=== PATIENT | female | born 1970 | race Caucasian/White ===

== ENCOUNTER → 2016-09-04 | Outpatient (CLI) | payer OTHER ==
[~2016-09-04] VITALS: Ht 162.6 cm; Wt 99.1 kg
[~2016-09-04] MED LIST: ABILIFY10 MG PO; ACETAMINOPHEN-1 EAC1 PO; AMITRIPTYLINE H10 M1 PO; ASPIRIN81 M2 PO; ATORVASTATIN CA40 MG PO; BACTRIM DS TAB1 EACH PO; BENTYL; BISACODYL SUPP10 MG RECTAL; BUSPAR; BUSPAR30 MG PO; BYSTOLIC 5 MG5 M1 PO; CLOMIPRAMINE HC50 M1 PO; COLACE100 MG PO; DIABETA 1.25M1.25 M1; EFFEXOR; EFFEXOR XR150 MG PO; EFFEXOR50 MG PO; ERYTHROMYCIN E3.5 G1 OPHTHALMIC; FLEXERIL PO; GABAPENTIN; HYDROCHLOROTHIA25 M1 PO; JANUMET; JANUMET 50-5001 EACH PO; JANUMET XR 1001 EACH PO; JANUMET XR 50-1 EACH PO; JANUVIA100 MG PO; LANTUS SOL100 UNIT/1 SQ; LEVAQUIN 500 M50012 PO; LEXAPRO 10 MG T10 M1 PO; LIDOCAINE VISC100 ML PO; LISINOPRIL; LUNESTA; MEDROLDOSEPACK PO; METFORMIN; METFORMIN HCL500 MG PO; METOCLOPRAMIDE10 MG PO; MOBIC; MOBIC15 MG PO; NAPROSYN500 MG PO; NEURONTIN600 MG; NEXIUM; NEXIUM 40 MG CA40 M1 PO; NICOTINE TRANSD21 M1 TD; NICOTINE TRANSD21 M1 TRANSDERM; NORCO 10-325 T1 EACH PO; NORFLEX100 MG PO; OXYCONTIN10 M1 PO; PERCOCET 5-3251 EACH PO; PREDNISONE 10 M10 MG PO; PREDNISONE 20 M20 MG PO; PRINIVIL10 MG; PRINIVIL10 MG PO; PROMETHAZINE D480 ML PO; REGLAN 10 MG TA10 MG PO; ROBAXIN 750 MG750 M1; ROBAXIN 750 MG750 M1 PO; TESSALON PERLE100 MG PO; TOPAMAX 25 MG T25 M1 PO; TRULICITY0.75 MG/0.; TRULICITY0.75 MG/0. SQ; VISTARIL; VITAMIN D32000 UNI1 PO; WELLBUTRIN XL300 MG; ZANAFLEX4 M1; ZIAC; ZIAC 10-6.25 M1 EACH PO; ZOCOR40 MG PO; ZOFRAN ODT4 MG PO; ZPAK PO
--- NOTE | ~2016-09-04 | HPC ---
[facility] [place] [address] PAIN MANAGEMENT CONSULTATION Name: BALBIR MATSON Room #: REG MARLEYTita Moody#: [id number] Admission: 09/04/16 Attend Phys: Scout Hernandez DO Discharge: Date of : 68 Report #: [id number] THIS REPORT FOR: //name// CC: Mili Hernandez The patient is a 46-year-old female being treated for lumbar radiculopathy, status post decompressive laminectomy surgeries, 2009 and 2013. Last seen in the pain clinic on 03/06/[address] Larry Brooks, right L4-L5 transforaminal epidural injection was offered with no significant improvement of pain. The patient prior had a midline epidural injection at L3-L4 back in September with some overall improvement. The patient returns to pain clinic today noting pain has recurred. It is primarily in low back, right leg. To the patient's credit, she is loathe to take opiate analgesics, having been habituated to opiates and gone through detox. She currently takes Tylenol alone for pain. She notes pain is 6/10. Again, the pain is radiating down the right leg in, what appears to be, an L4 radicular pattern. She would like to try and avoid further surgery. She presents to pain clinic today for consideration for epidural injection under fluoroscopy. PHYSICAL EXAMINATION: Shows a 46-year-old female, BMI is 37.5 kilograms per meter squared. Vital signs are stable as noted in the EMR. Rises from the chair using armrest, modestly antalgic gait. Subjectively notable loss of strength of right leg to hip flexion, lower extremity extension, perhaps 3/5 versus 4-5/5 for the left. Straight leg raise is nominally positive. Patellar reflex is diminished on the right. Diffuse tenderness across the low back, large midline scar compatible with her extensive surgical history (lumbar fusion). Her first surgery was a fusion at [facility] around 2009; this resulted in exacerbation of pain. Subsequent decompression and laminectomy by Dr. Lester in 2013 provided some overall improvement. ASSESSMENT: Symptomatic lumbar radiculopathy, status post decompressive laminectomy, comorbidities include morbid obesity with body mass index of 37.5 kilograms per meter squared. RECOMMENDATIONS: Discussion with the patient today about therapeutic option. We have elected to trial midline epidural injection today, above the surgical site at L3-L4. If this does not afford adequate relief, consider injection from a lower approach, i.e. L5-S1 and/or caudal. ASSESSMENT: Symptomatic lumbar radiculopathy status post decompressive laminectomy. PROCEDURE: Lumbar epidural [place] [address] PAIN MANAGEMENT CONSULTATION Name: BALBIR MATSON Room #: REG GILBERTO Moody#: [id number] Admission: 09/04/16 Attend Phys: Scout Hernandez DO Discharge: Date of : 68 Report #: [id number] DESCRIPTION OF PROCEDURE: After both written and informed consent to include risk of spinal cord damage, increased pain, weakness and dural puncture, the patient was taken to the fluoroscopy suite, placed in the prone position. After sterile prep and drape, a skin wheal with lidocaine was raised. A 22-gauge epidural Tuohy needle was inserted in the midline at L3-L4 with good loss to resistance. Negative aspiration for cerebrospinal fluid or blood was noted. Then 1 mL of Omnipaque under biplanar fluoroscopy showed good spread within the epidural space. This was followed with 80 mg of triamcinolone plus 1 mL of 1.5% preservative-free Xylocaine, 0.5 mL Xylocaine was then injected to flush the needle; it was removed. The patient was monitored for an appropriate period of time and discharged in good and stable condition. <ELECTRONICALLY SIGNED> By: Scout Hernandez DO 09/05/16 [id number] Scout Hernandez DO /nt
[2016-09-04 12:47] VITALS: BP 145/85
== END ==
LOC: PAIN 07:08
DX: M54.16 Radiculopathy, lumbar region (principal); E66.01 Morbid (severe) obesity due to excess calories; Z68.37 Body mass index [BMI] 37.0-37.9, adult

== ENCOUNTER → 2016-10-02 | Outpatient (CLI) | payer OTHER ==
[~2016-10-02] VITALS: Ht 162.6 cm; Wt 100.7 kg
--- NOTE | ~2016-10-02 | HPC ---
[facility] [place] [address] PAIN MANAGEMENT CONSULTATION Name: BALBIR MATSON Room #: REG MARLEYTita Moody#: [id number] Admission: 10/02/16 Attend Phys: Scout Hernandez DO Discharge: Date of : 68 Report #: [id number] THIS REPORT FOR: //name// CC: Mili Hernandez HISTORY OF PRESENT ILLNESS: The patient is a 46-year-old female seen on 09/04/2016, was given a midline epidural injection at L3-L4 with really little efficacy. She had prior been seen back in February and given a right L4-L5 transforaminal epidural injection by Dr. Larry Brooks with better relief. The patient returns to pain clinic today noting that pain may have even gotten worse, following that last midline injection at L2-L3. She notes her pain is primarily in the back, right thigh and leg with numbness and paresthesia in the leg. She complains of sciatic pain, burning between her legs. She has had some bowel and bladder, stress incontinence, though this has been going on for quite some time. To the patient's credit, she quit smoking 2 months ago. She was applauded on this effort. PHYSICAL EXAMINATION: Shows a 46-year-old female, BMI is 38.1 kilograms per meter squared. VITALS SIGNS: Modest hypertension at 186/97, pulse of 56, respirations 20. Rises from the chair using armrest. Gait is tandem. Positive straight leg raise on the right. Patellar and Achilles reflexes are preserved, though diminished. Right leg does have diminished strength to hip flexion, lower extremity extension, and plantar flexion 3/5 versus 4/5 on the left. ASSESSMENT: Symptomatic lumbar radiculopathy, status post decompressive laminectomy at L4-L5. RECOMMENDATION: Epidural injection under fluoroscopy today, midline at L5-S1. If this does not afford adequate relief, we will need an MRI to reevaluate pathology. To the patient's credit, she is loathe to start any opiate analgesics, she had prior become habituated to prescription opiates and had a difficult time with detox. She is happy taking Tylenol alone though, but notes this really is not helpful for her pain at present. Today, after discussion with the patient, it was elected to proceed with epidural injection at L5-S1. I will use low dose of fentanyl to help with immediate pain relief, waiting for the steroid to kick in. I will be happy to see her back in 4 weeks for reevaluation. ASSESSMENT: Symptomatic lumbar radiculopathy, status post decompressive [facility] [address] [place] [address] PAIN MANAGEMENT CONSULTATION Name: ABLBIR MATSON MAIDA Room #: REG GILBERTO Moody#: [id number] Admission: 10/02/16 Attend Phys: Scout Hernandez DO Discharge: Date of : 68 Report #: [id number] laminectomy. PROCEDURE: Lumbar epidural injection under fluoroscopy. DESCRIPTION OF PROCEDURE: After both written and informed consent to include risk of spinal cord damage, increased pain, weakness and dural puncture, the patient was taken to the fluoroscopy suite, placed in the prone position. After sterile prep and drape, a skin wheal with lidocaine was raised. A 22-gauge epidural Tuohy needle was inserted in the midline at L5-S1 with good loss to resistance. Negative aspiration for cerebrospinal fluid or blood was noted. Then 1 mL of Omnipaque under biplanar fluoroscopy showed good spread within the epidural space. This was followed with 12 mcg of fentanyl along with 80 mg of triamcinolone plus 1 mL of 1.5% preservative-free Xylocaine, 0.5 mL Xylocaine was then injected to flush the needle; it was removed. The patient was monitored for an appropriate period of time and discharged in good and stable condition. <ELECTRONICALLY SIGNED> By: Scout Hernandez DO 10/06/16 [id number] Scout Hernandez DO /nt
[2016-10-02 12:53] VITALS: BP 186/97
== END ==
LOC: PAIN 09-25 15:41
DX: M54.16 Radiculopathy, lumbar region (principal); Z87.891 Personal history of nicotine dependence; I10 Essential (primary) hypertension